=== PATIENT | male | born 1960 | race Caucasian/White ===

== ENCOUNTER 2017-12-18 05:53 | Day surgery (SDC) | payer MEDICAID, SELFPAY ==
[2017-12-18 06:11] VITALS: BP 114/77; PULSE 72; RESP 16; TEMP 36.2; O2SAT 96; BMI 34.1
[2017-12-18 06:33] VITALS: BMI 34.1
[2017-12-18 06:41] LABS: Bedside Glucose 224 mg/dL (70-110)
[2017-12-18 07:20] VITALS: BP 113/79; BP 114/77; PULSE 65; RESP 16; TEMP 36.1; O2SAT 97
--- NOTE | 2017-12-18 07:20 | PCM.HP.STD ---
Problem List (1) Encounter for screening for malignant neoplasm of colon Status: Acute History of Present Illness Date of Admission: 12/18/17 The patient is a 57 year old M who presents for screening colonoscopy. Past Medical History Allergies No Known Allergies Allergy (Verified 12/16/17 15:35) Home Medications: Ambulatory Orders Medication Instructions Recorded Tadalafil [Cialis] 10 mg PO PRN 08/29/13 Aspirin [Aspirin, Baby] 81 mg PO DAILY@0800 09/17/13 Gemfibrozil [Lopid] 600 mg PO DAILY 09/17/13 Glimepiride [Amaryl] 2 mg PO DAILY 09/17/13 Lansoprazole [Prevacid] 30 mg PO BID 09/17/13 Levothyroxine Sodium [Levoxyl] 175 mcg PO DAILY 09/17/13 Lisinopril [Zestril] 5 mg PO DAILY 09/17/13 Metformin(XR) [Glucophage Xr] 1,000 mg PO BID 09/17/13 Alogliptin Benzoate [Alogliptin] 25 mg PO DAILY 12/16/17 Smoking Status: Never smoker - *Family History Maternal History Items: No pertinent history VTE Information - Inpt Only VTE Present on Admission: No VTE Mechan Device Prophylaxis: None VTE Pharm Prophylaxis ordered?: No Reason prophylaxis not ordered:: Treatment Not Indicated Patient Problems: Active and Suspected Problems Encounter for screening for malignant neoplasm of colon (Acute) - Physical Exam Lungs: Clear to auscultation Cardiovascular: Regular rate, Regular Rhythm, No murmurs Abdomen: Bowel Sounds Present, Soft, Non Tender, Non-Distended Vital Signs Temp Pulse Resp BP Pulse Ox 97.1 F L 72 16 114/77 96 12/18/17 06:11 12/18/17 06:11 12/18/17 06:11 12/18/17 06:11 12/18/17 06:11 Oxygen Delivery Method Room Air Weight: 244 lb 14.937 oz Body Mass Index (BMI) 34.1 POC Glucose 12/18/17 06:32 POC Glucose 224 H Assessment/Plan Active and Suspected Problems Encounter for screening for malignant neoplasm of colon (Acute) Pain is to perform a colonoscopy.
--- NOTE | 2017-12-18 07:21 | PCM.OPRPT ---
Problem List (1) Encounter for screening for malignant neoplasm of colon Status: Acute Report of Operation Date of Procedure: 12/18/17 Pre-Operative Diagnosis: Z12.11 screening colonoscopy Post-Operative Diagnosis: Same Surgery/Procedure Performed:: 14375 colonoscopy Type of Anesthesia:: MAC Anesthesiologist: Adalberto León Description of Procedure: Patient was brought into the endoscopy suite placed in the left lateral decubitus position was given graded anesthesia. The scope was inserted into the rectum. It was directed through the sigmoid colon, descending colon, transverse colon, ascending colon, to the cecum without difficulty. Operative findings: 1. Cecum: Normal appearance no mass lesions normal ileocecal valve. 2. Ascending colon: Normal appearance no mass lesions. 3. Transverse colon: Normal appearance no mass lesions. 4. Descending colon: Normal appearance no mass lesions. 5. Sigmoid colon: Normal appearance no mass lesions scattered diverticuli were identified. 6. Rectum: Normal appearance no mass lesions. Retroflexion showed a few internal hemorrhoids Scope was withdrawn digital rectal exam was performed showing a smooth prostate with no nodules. Patient will need to have another colonoscopy in 10 years - Admit VTE Documentation VTE Present on Admission: No VTE Mechan Device Prophylaxis: None VTE Pharm Prophylaxis ordered?: No Reason prophylaxis not ordered:: Treatment Not Indicated
[2017-12-18 07:25] VITALS: BP 106/76; BP 114/77; PULSE 68; RESP 14; O2SAT 96
[2017-12-18 07:30] VITALS: BP 111/80; BP 114/77; PULSE 62; RESP 16; O2SAT 96
[2017-12-18 07:35] VITALS: BP 112/71; BP 114/77; PULSE 58; RESP 16; TEMP 36.4; O2SAT 96
[2017-12-18 07:47] VITALS: BP 114/77
== END 2017-12-18 07:53 | disposition home or self-care (01) ==
LOC: EN 05:54 → AC 05:56
PROVIDERS: Family Provider Family Medicine; PCP Family Medicine; Visit Provider Surgery
PROC: 0DJD8ZZ Inspection of Lower Intestinal Tract, Via Natural or Artificial Opening Endoscopic (ICD-10-PCS; CPT 45378; principal; 2017-12-18 06:55)
DX: Z12.11 Encounter for screening for malignant neoplasm of colon (principal); K64.8 Other hemorrhoids
CPT/HCPCS: 45378; 82962; J7120

== ENCOUNTER → 2017-12-19 08:01 | Outpatient (CLI) | payer MEDICAID, SELFPAY ==
--- NOTE | 2017-12-19 08:04 | CT_ITS ---
STUDY: CT RIGHT SHOULDER REASON FOR EXAM: Male, 57 years old. Chronic right shoulder pain. History of prior right rotator cuff surgery. RADIATION DOSAGE (If Supplied By Facility): CTDIvol = ( 34.24 ) mGy, DLP = ( 678.02 ) mGycm TECHNIQUE: The patient was scanned in a multi detector CT scanner. High resolution transaxial imaging was performed without the administration of intravenous contrast material. Sagittal and coronal images were reconstructed. Individualized dose optimization techniques were used for this CT. COMPARISON: Comparison is made with prior right shoulder radiograph dated October 08, 2016. FINDINGS: There is severe osteoarthritis, with severe articular joint space narrowing, osteoarthritic spurring, articular remodeling, and with articular erosions. Degenerative spur along the inferior aspect of the glenoid. Degenerative spurring along the inferior medial aspect of the humeral head. Normal coracoid process. Normal visualized lateral clavicle. There is mild osteoarthritis with articular joint space narrowing. There is a Type II morphology (curved), with a neutral orientation. Normal visualized muscles and soft tissue structures. CT/Coronals Sag Multi Obl 3-D Rec IMPRESSION: Marked degree of osteoarthritis involving the glenohumeral joint. Electronically Signed: German Gonzalez MD at 13:36 EST Tel [phone], Service support ,
--- NOTE | 2017-12-19 08:04 | CT_ITS ---
STUDY: CT RIGHT SHOULDER REASON FOR EXAM: Male, 57 years old. Chronic right shoulder pain. History of prior right rotator cuff surgery. RADIATION DOSAGE (If Supplied By Facility): CTDIvol = ( 34.24 ) mGy, DLP = ( 678.02 ) mGycm TECHNIQUE: The patient was scanned in a multi detector CT scanner. High resolution transaxial imaging was performed without the administration of intravenous contrast material. Sagittal and coronal images were reconstructed. Individualized dose optimization techniques were used for this CT. COMPARISON: Comparison is made with prior right shoulder radiograph dated October 08, 2016. FINDINGS: There is severe osteoarthritis, with severe articular joint space narrowing, osteoarthritic spurring, articular remodeling, and with articular erosions. Degenerative spur along the inferior aspect of the glenoid. Degenerative spurring along the inferior medial aspect of the humeral head. Normal coracoid process. Normal visualized lateral clavicle. There is mild osteoarthritis with articular joint space narrowing. There is a Type II morphology (curved), with a neutral orientation. Normal visualized muscles and soft tissue structures. CT/Extremity Upper without Contra IMPRESSION: Marked degree of osteoarthritis involving the glenohumeral joint. Electronically Signed: German Gonzalez MD at 13:36 EST Tel [phone], Service support ,
== END ==
PROVIDERS: Family Provider Family Medicine; PCP Family Medicine; Visit Provider Specialist
DX: M19.211 Secondary osteoarthritis, right shoulder (principal); S46.011A Strain of muscle(s) and tendon(s) of the rotator cuff of right shoulder, initial encounter; Z01.818 Encounter for other preprocedural examination
CPT/HCPCS: 73200; 76377

== ENCOUNTER → 2018-02-11 08:23 | Outpatient (CLI) | payer MEDICAID, SELFPAY ==
[2017-12-25 15:08] VITALS: BP 113/72; PULSE 78; RESP 16; TEMP 37; O2SAT 96; BMI 35.0
--- NOTE | 2017-12-25 15:11 | EKG12_ITS ---
Test Reason : Blood Pressure : / mmHG Vent. Rate : 073 BPM Atrial Rate : 073 BPM P-R Int : 182 ms QRS Dur : 092 ms QT Int : 394 ms P-R-T Axes : 011 -07 004 degrees QTc Int : 434 ms Normal sinus rhythm Normal ECG Confirmed by RAMOS KAUR, ULI ([id number]), marketing editor YVONNE COOPER ([id number]) on 12/26/2017 1:01:55 PM Referred By: Pro Bradley Confirmed By:ULI BEASLEY MD
[2017-12-25 16:20] LABS: Absolute Lymphocyte Count 2.53 X10^3/ul (0.83-4.51); Absolute Neutrophil Count 6.2 X10^3/uL (2.0-7.7); Basophil# 0.05 X10^3/uL; Basophil% 0.5 % (0-1); Eosinophil# 0.12 X10^3/uL; Eosinophils% 1.3 % (0-5); Hematocrit 43.4 % (40-54); Hemoglobin 14.8 g/dl (13.0-16.5); Lymphocyte # 2.53 X10^3/ul (4.0); Lymphocyte % 27.2 % (19-41); Mean Corp Hgb Conc 34.1 g/gl (32-36); Mean Corpuscular Hgb 29.1 pg (27.0-32.0); Mean Corpuscular Volume 85.4 fL (80-94); Mean Platelet Vol. 10.3 fl (6.2-12.0); Monocyte# 0.41 X10^3/uL; Monocyte% 4.4 % (0-10); Neutrophil # 6.17 X10^3/uL (2.7-7.7); Neutrophil % 66.4 % (47-70); Platelet Count 315 K/mm3 (150-450); RBC Distribution Width CV 13.8 % (11.6-14.6); RBC Distribution Width SD 43.1 fl (35.1-43.9); Red Blood Count 5.08 M/mm3 (4.6-6.2); White Blood Count 9.3 K/mm3 (4.4-11.0)
[2017-12-25 16:21] LABS: POSITIVE COUNT NO; POSITIVE DIFFERENTIAL NO; POSITIVE MORPHOLOGY NO
[2017-12-25 16:44] LABS: Hemoglobin A1c 9.6 % (4.2-6.3)
[2017-12-25 17:00] LABS: Anion Gap 12 (5-15); BUN 17 mg/dL (7-18); BUN/Creat Ratio 14.2 RATIO (10-20); Chloride 101 mmol/L (98-107); EST Glomerular Filtration Rate 66 mL/min (>60); Est Glom Filt Rate - Afr Amer 80 mL/min (>60); Estimated Creatinine Clearance 72.34 ml/min; Glucose 264 mg/dL (74-106); Potassium 4.3 mmol/L (3.5-5.1); Sodium Level 135 mmol/L (136-145); Thyroid Stim Hormone (TSH) 2.41 uIU/mL (0.358-3.74)
--- NOTE | 2017-12-25 22:45 | HP.PCM_ITS ---
History and Physical DATE OF SERVICE: 01/07/2018 SCHEDULED PROCEDURE: Reverse right total shoulder arthroplasty HISTORY OF PRESENT ILLNESS: This is a 57-year-old male who has been having ongoing right shoulder pain for over 20 years. Patient is right-hand dominant. Patient states the pain can reach as high as a 10 out of 10. He has difficult time with activities of daily living that include anything overhead. Patient has pain in the anterior lateral shoulder. Pain does awaken him at night. 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 He states his shoulder pain has been causing extreme difficulty with doing his job due to the pain. Patient has limited motion when compared to his other side. He does have previous history of arthroscopy and open surgery on the right shoulder. Patient has tried previous corticosteroid injections with his primary care physician as well as [id number] medications with no significant relief in symptoms. Patient has medical history pertinent for hypertension and type 2 diabetes mellitus. We are obtaining surgical clearance from his primary care physician Dr. Linn. After failing conservative measures and discussing all treatment options with Dr. Bradley, the patient would like to proceed with a reverse right total shoulder arthroplasty. REVIEW OF SYSTEMS: ROS: Const: Denies anorexia, anxiety, change in appetite, fever and weight change, hard of hearing, and vision problems. CV: Denies chest pain, heart murmur, irregular heartbeat and peripheral vascular disease. Resp: Denies asthma, cough, pneumonia, sleep apnea, shortness of breath, tuberculosis and wheezing. GI: Denies constipation, diarrhea, heartburn, nausea, bloody stools and vomiting , and difficulty swallowing. : . (F Genital Sx) Denies incontinence. Musculo: Denies leg swelling, trouble walking and weakness and limp. Skin: Denies Raynaud's, history of shingles and tattoo. Neuro: Denies ambulatory dysfunction, dizziness, numbness/tingling and tremor. Psych: Denies anxiety, depression, insomnia, mental illness and stress. Gilberto/Lymph: Denies anemia, bleeding/bruising tendency and past transfusion. Reviewed, no changes. PAST MEDICAL HISTORY: Advance Care Plan: No Advance Directives Effective Date: 11/22/2017 PMH: Medical Problems: High Blood Pressure, Hypercholesterolemia, Over Active Thyroid`, Diabetes Accidents: None Surgical Hx: Arthroscopy - RT shoulder, LT knee RT THR - (2010) JINNY Anesthesia Complications: None Assistive Devices: Glasses Reviewed, no changes. 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 Personal Habits: Smoking: Patient has never smoked.Cigarette Use: Never.Alcohol : Currently consumes alcohol - 1-2x/week.Drug Use: Denies Use.Enjoy Exercising: Never Exercises. Reviewed, no changes. VITALS: Ht: 69.5 Wt: 250lb Wt k.400 BMI: 36.4 BP: 110/80 Pulse: 78 Resp: 16 T: 97.4 T: 36.3C ALLERGIES: No Known Drug Allergy MEDICATIONS: Ultram 50 mg 1-2 by mouth q6 hour as needed pain, Lisinopril 2.5 mg 1po qday, Metformin HCL 1000 mg 1po qday, Levothyroxine Sodium 75 mcg 1po qday, Lansoprazole 15 mg take 2 capsules every day, Glimepiride 2 mg Take 1 tablet by mouth daily, Gemfibrozil 600 mg take 1 tablet by mouth twice daily, Atorvastatin Calcium 10 mg Take 1 tablet by mouth daily, Alogliptin Benzoate 25 mg Take 1 tablet by mouth daily PRE-OP EXAM: General appearance:NORMAL Other: Eyes: Conjunctivae and lids: NORMAL Pupils: ERR Ears, Nose, Mouth, and Throat: NORMAL Other: Inspection of lips, teeth and gums: NORMAL Other: Neck: Examination of neck: no masses noted. Respiratory: Assessment of respiratory effort: NORMAL Other: Ausculation of lungs: clear to ausculation no wheeses, ronchi or rales. Cardiovascular: Ausculation of heart: regular rate and rhythem, no mummurs, gallops or rubs. Exam of carotid arteries: NORMAL Other: Gastrointestinal: Exam of abdomen: soft, nontender, nondistended bowel sounds present. Lymphatic: Palpation of nodes in neck: NORMAL Other: Palpation of nodes in Axillae: NORMAL Other: Neurological: see below Psychiatric: Orientation to time, place and person: NORMAL Other: Mood and affect: NORMAL Other: PHYSICAL EXAMINATION: Right shoulder examination reveals previous incisions well-healed without any ear edema. Patient has scapular dyskinesia and compensation upon range of motion. There is crepitus appreciated on range of motion. Internal rotation is to beltline, forward elevation to 70?, external rotation approximately 20?. Patient has significant weakness with supraspinatus strength on the right. Sensations intact light touch, neurovascularly intact. IMAGING STUDIES: 1. X-rays were obtained at [facility] [place] on November 22, 2017 of the right shoulder reveals severe rotator cuff arthropathy with osteophyte formation, subchondral sclerosis, subchondral cyst and complete loss of glenohumeral joint space with elevation of the humeral head. IMPRESSION: 1. Right shoulder severe osteoarthritis with rotator cuff arthropathy 2. Hypertension 3. Type 2 diabetes mellitus 4. Hypercholesterolemia 5. Hyperthyroidism PLAN: Dr. Bradley did discuss and review with the patient all treatment options including surgical versus nonsurgical. Patient wishes to proceed with above- stated procedure. Potential risks, benefits, and complications of this procedure were discussed in detail including but not limited to , infection , nerve and blood vessel damage, persistent pain, numbness, tingling, paresthesias, blood clot, pulmonary embolism, and requirement for further surgery. The patient expressed full understanding has no further questions for the doctor. Patient does agree to proceed with the above-stated procedure and has signed the surgery consent form. Patient will undergo preoperative lab work and EKG. We are obtaining surgical clearance from patient's primary care physician. ___ I have re-examined the patient. There are no clinical changes since date of exam. ___ See progress notes for changes. ___ Dictated on admission Date: Time: Signature:
== END ==
PROVIDERS: Family Provider Family Medicine; PCP Family Medicine; Visit Provider Specialist
DX: M19.011 Primary osteoarthritis, right shoulder (principal); I10 Essential (primary) hypertension; E11.9 Type 2 diabetes mellitus without complications; E78.00 Pure hypercholesterolemia, unspecified; E05.90 Thyrotoxicosis, unspecified without thyrotoxic crisis or storm
CPT/HCPCS: 36415; 80048; 83036; 84443; 85025; 87081; 93005

== ENCOUNTER 2018-03-04 05:34 | Inpatient (IN) | payer MEDICAID, SELFPAY ==
[2018-02-20 08:10] VITALS: BP 126/75; PULSE 67; RESP 17; TEMP 36.4; O2SAT 97; BMI 35.5
[2018-02-20 09:16] LABS: Anion Gap 7 (5-15); BUN 15 mg/dL (7-18); BUN/Creat Ratio 14.3 RATIO (10-20); Calcium,Total 8.7 mg/dL (8.5-10.1); Chloride 106 mmol/L (98-107); Creatinine, Serum 1.05 mg/dL (0.70-1.30); EST Glomerular Filtration Rate 77 mL/min (>60); Est Glom Filt Rate - Afr Amer 94 mL/min (>60); Estimated Creatinine Clearance 80.15 ml/min; Glucose 165 mg/dL (74-106); Potassium 4.4 mmol/L (3.5-5.1); Sodium Level 136 mmol/L (136-145)
--- NOTE | 2018-02-20 15:40 | PCM.HP.BLA ---
History and Physical History and Physical Patient Name: Daryn Arthur: 1960 From: ANGEL CARVER PA-C DATE OF SURGERY: 03/04/2018 SCHEDULED PROCEDURE: HISTORY OF PRESENT ILLNESS: This is a 57-year-old male who is been having ongoing right shoulder pain for over 20 years. Patient was previously scheduled to undergo a right reverse total shoulder arthroplasty but was canceled due to A1c at 9.6. Patient followed up with his primary care physician medications were adjusted and patient's recent A1c is at area patient is currently right-hand dominant. Patient has increased pain with activities of daily living that includes anything overhead. Pain is primarily of the anterior and lateral aspect of the right shoulder. Pain does awaken him at night. 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 Patient is having a difficult time with his job secondary to the pain. He has limited range of motion compared to his other side. Patient has had a previous history of arthroscopy and open surgery on the right shoulder. He has also tried previous corticosteroid injections with his primary care physician as well as [id number] medications with no significant relief in symptoms. Patient does have medical history pertinent for hypertension as well as type 2 diabetes mellitus. We have received surgical clearance from his primary care physician. After failing conservative measures and discussing all treatment options after Mirna, the patient would like to proceed with a reverse right total shoulder arthroplasty. REVIEW OF SYSTEMS: ROS: Const: Denies anorexia, anxiety, change in appetite, fever and weight change,hard of hearing, and vision problems. CV: Denies chest pain, heart murmur, irregular heartbeat and peripheral vascular disease. Resp: Denies asthma, cough, pneumonia, sleep apnea, shortness of breath, tuberculosis and wheezing. GI: Denies constipation, diarrhea, heartburn, nausea, bloody stools and vomiting, and difficulty swallowing. : . (F Genital Sx) Denies incontinence. Musculo: Denies leg swelling, trouble walking and weakness and limp. Skin: Denies Raynaud's, history of shingles and tattoo. Neuro: Denies ambulatory dysfunction, dizziness, numbness/tingling and tremor. Psych: Denies anxiety, depression, insomnia, mental illness and stress. Gilberto/Lymph: Denies anemia, bleeding/bruising tendency and past transfusion. Reviewed, no changes. PAST MEDICAL HISTORY: Advance Care Plan: No Advance Directives Effective Date: 11/22/2017 PMH: Medical Problems: High Blood Pressure, Hypercholesterolemia, Over Active Thyroid`, Diabetes Accidents: Fracture - BAHMAN ELBOW A CHILD Surgical Hx: Arthroscopy - RT shoulder, LT knee RT THR - (2010) JINNY Anesthesia Complications: None Assistive Devices: Glasses Reviewed and updated. 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 Personal Habits: Smoking: Patient has never smoked.Cigarette Use: Never.Alcohol: Currently consumes alcohol - 1-2x/week.Drug Use: Denies Use.Enjoy Exercising: Never Exercises. Reviewed, no changes. VITALS: Ht: 69.5 Wt: 246lb Wt k.586 BMI: 35.8 BP: 112/78 Pulse: 64 Resp: 16 T: 96.3 T: 35.7C ALLERGIES: No Known Drug Allergy MEDICATIONS: Metformin HCL 500 mg 1 tab PO bid, Levothyroxine Sodium 75 mcg 1po qday, Lansoprazole 15 mg 1 cap PO bid, Glimepiride 2 mg Take 1 tablet by mouth daily, Gemfibrozil 600 mg take 1 tablet by mouth twice daily, Alogliptin Benzoate 25 mg Take 1 tablet by mouth daily, Testosterone Cypionate 200 mg/ml Inject 1ml intramuscularly every 3 weeks. PRE-OP EXAM: General appearance:NORMAL Other: Eyes: Conjunctivae and lids: NORMAL Pupils: ERR Ears, Nose, Mouth, and Throat: NORMAL Other: Inspection of lips, teeth and gums: NORMAL Other: Neck: Examination of neck: no masses noted. Respiratory: Assessment of respiratory effort: NORMAL Other: Auscultation of lungs: clear to auscultation no wheezes, rhonchi or rales. Cardiovascular: Auscultation of heart: regular rate and rhythm, no murmurs, gallops or rubs. Exam of carotid arteries: NORMAL Other: Gastrointestinal: Exam of abdomen: soft, nontender, nondistended bowel sounds present. PHYSICAL EXAMINATION: Right shoulder reveals previous incisions are well-healed without any erythema or signs of infection. Patient does have scapular dyskinesia and compensation upon range of motion. Crepitus is appreciated on range of motion. Internal rotation is to beltline, forward elevation to 70?, external rotation approximately 20?. Patient with significant weakness with the supraspinatus on the right. Sensations intact light touch, neurovascularly intact. IMAGING STUDIES: 1. X-rays were obtained at [facility] [place] on November 22, 2017 of the right shoulder which reveals severe rotator cuff arthropathy with osteophyte formation, subchondral sclerosis, subchondral cyst formation, and complete loss of glenohumeral joint space with elevation of the humeral head. IMPRESSION: 1. Severe right shoulder osteoarthritis with rotator cuff arthropathy 2. Hypertension 3. Type 2 diabetes mellitus: Current A1c 7.7 4. Hypercholesterolemia 5. Hyper thyroidism PLAN: Dr. Bradley did discuss and review with the patient all treatment options including surgical versus nonsurgical. Patient wishes to proceed with above-stated procedure. Potential risks, benefits, and complications of this procedure were discussed in detail including but not limited to , infection, nerve and blood vessel damage, persistent pain, numbness, tingling, paresthesias, blood clot, pulmonary embolism, and requirement for further surgery. The patient expressed full understanding has no further questions for the doctor. Patient does agree to proceed with the above-stated procedure and has signed the surgery consent form. ___ I have re-examined the patient. There are no clinical changes since date of exam. ___ See progress notes for changes. ___ Dictated on admission Date: Time: Signature:
--- NOTE | 2018-02-20 15:47 | HP.PCM_ITS ---
History and Physical History and Physical Patient Name: Daryn Arthur: 1960 From: ANGEL CARVER PA-C DATE OF SURGERY: 03/04/2018 SCHEDULED PROCEDURE: HISTORY OF PRESENT ILLNESS: This is a 57-year-old male who is been having ongoing right shoulder pain for over 20 years. Patient was previously scheduled to undergo a right reverse total shoulder arthroplasty but was canceled due to A1c at 9.6. Patient followed up with his primary care physician medications were adjusted and patient's recent A1c is at area patient is currently right-hand dominant. Patient has increased pain with activities of daily living that includes anything overhead. Pain is primarily of the anterior and lateral aspect of the right shoulder. Pain does awaken him at night. 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 Patient is having a difficult time with his job secondary to the pain. He has limited range of motion compared to his other side. Patient has had a previous history of arthroscopy and open surgery on the right shoulder. He has also tried previous corticosteroid injections with his primary care physician as well as [id number] medications with no significant relief in symptoms. Patient does have medical history pertinent for hypertension as well as type 2 diabetes mellitus. We have received surgical clearance from his primary care physician. After failing conservative measures and discussing all treatment options after Miran , the patient would like to proceed with a reverse right total shoulder arthroplasty. REVIEW OF SYSTEMS: ROS: Const: Denies anorexia, anxiety, change in appetite, fever and weight change, hard of hearing, and vision problems. CV: Denies chest pain, heart murmur, irregular heartbeat and peripheral vascular disease. Resp: Denies asthma, cough, pneumonia, sleep apnea, shortness of breath, tuberculosis and wheezing. GI: Denies constipation, diarrhea, heartburn, nausea, bloody stools and vomiting , and difficulty swallowing. : . (F Genital Sx) Denies incontinence. Musculo: Denies leg swelling, trouble walking and weakness and limp. Skin: Denies Raynaud's, history of shingles and tattoo. Neuro: Denies ambulatory dysfunction, dizziness, numbness/tingling and tremor. Psych: Denies anxiety, depression, insomnia, mental illness and stress. Gilberto/Lymph: Denies anemia, bleeding/bruising tendency and past transfusion. Reviewed, no changes. PAST MEDICAL HISTORY: Advance Care Plan: No Advance Directives Effective Date: 11/22/2017 PMH: Medical Problems: High Blood Pressure, Hypercholesterolemia, Over Active Thyroid`, Diabetes Accidents: Fracture - BAHMAN ELBOW A CHILD Surgical Hx: Arthroscopy - RT shoulder, LT knee RT THR - (2010) JINNY Anesthesia Complications: None Assistive Devices: Glasses Reviewed and updated. 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 Personal Habits: Smoking: Patient has never smoked.Cigarette Use: Never.Alcohol : Currently consumes alcohol - 1-2x/week.Drug Use: Denies Use.Enjoy Exercising: Never Exercises. Reviewed, no changes. VITALS: Ht: 69.5 Wt: 246lb Wt k.586 BMI: 35.8 BP: 112/78 Pulse: 64 Resp: 16 T: 96.3 T: 35.7C ALLERGIES: No Known Drug Allergy MEDICATIONS: Metformin HCL 500 mg 1 tab PO bid, Levothyroxine Sodium 75 mcg 1po qday, Lansoprazole 15 mg 1 cap PO bid, Glimepiride 2 mg Take 1 tablet by mouth daily, Gemfibrozil 600 mg take 1 tablet by mouth twice daily, Alogliptin Benzoate 25 mg Take 1 tablet by mouth daily, Testosterone Cypionate 200 mg/ml Inject 1ml intramuscularly every 3 weeks. PRE-OP EXAM: General appearance:NORMAL Other: Eyes: Conjunctivae and lids: NORMAL Pupils: ERR Ears, Nose, Mouth, and Throat: NORMAL Other: Inspection of lips, teeth and gums: NORMAL Other: Neck: Examination of neck: no masses noted. Respiratory: Assessment of respiratory effort: NORMAL Other: Auscultation of lungs: clear to auscultation no wheezes, rhonchi or rales. Cardiovascular: Auscultation of heart: regular rate and rhythm, no murmurs, gallops or rubs. Exam of carotid arteries: NORMAL Other: Gastrointestinal: Exam of abdomen: soft, nontender, nondistended bowel sounds present. PHYSICAL EXAMINATION: Right shoulder reveals previous incisions are well-healed without any erythema or signs of infection. Patient does have scapular dyskinesia and compensation upon range of motion. Crepitus is appreciated on range of motion. Internal rotation is to beltline, forward elevation to 70?, external rotation approximately 20?. Patient with significant weakness with the supraspinatus on the right. Sensations intact light touch, neurovascularly intact. IMAGING STUDIES: 1. X-rays were obtained at [facility] on November 22, 2017 of the right shoulder which reveals severe rotator cuff arthropathy with osteophyte formation, subchondral sclerosis, subchondral cyst formation, and complete loss of glenohumeral joint space with elevation of the humeral head. IMPRESSION: 1. Severe right shoulder osteoarthritis with rotator cuff arthropathy 2. Hypertension 3. Type 2 diabetes mellitus: Current A1c 7.7 4. Hypercholesterolemia 5. Hyper thyroidism PLAN: Dr. Bradley did discuss and review with the patient all treatment options including surgical versus nonsurgical. Patient wishes to proceed with above- stated procedure. Potential risks, benefits, and complications of this procedure were discussed in detail including but not limited to , infection , nerve and blood vessel damage, persistent pain, numbness, tingling, paresthesias, blood clot, pulmonary embolism, and requirement for further surgery. The patient expressed full understanding has no further questions for the doctor. Patient does agree to proceed with the above-stated procedure and has signed the surgery consent form. ___ I have re-examined the patient. There are no clinical changes since date of exam. ___ See progress notes for changes. ___ Dictated on admission Date: Time: Signature:
[2018-03-04] VITALS (14 sets, daily range): BP systolic 100–128; BP diastolic 59–78; PULSE 49–64; RESP 16–18; TEMP 36.4–36.7; O2SAT 91–99; BMI 34.5
[2018-03-04] MEDS: Celecoxib 200 MG Capsule 400 MG PO (06:26)
[2018-03-04] MEDS: oxyCODONE HCl Cr 10 MG Tablet PO (06:27)
[2018-03-04 06:40] LABS: Bedside Glucose 207 mg/dL (70-110)
[2018-03-04] MEDS: CEFAZOLIN IV (07:40)
--- NOTE | 2018-03-04 07:49 | OP.PCM_ITS ---
Report of Operation Date of Procedure: 03/04/18 Pre-Operative Diagnosis: Right shoulder cuff tear arthropathy Post-Operative Diagnosis: Right shoulder cuff tear arthropathy Surgery/Procedure Performed:: Right reverse total shoulder replacement Description of Surgical Findings:: stAble shoulder technical information specialist: Dusty Weiner Type of Anesthesia:: General Anesthesiologist: Aryan Pulido Special Medications: bony Cuts Specimen's removed: 2 g Ancef, 1 g TXA at incision, 1 g TXA closure, 10 mg Decadron, joint cocktail (5 mg Duramorph, 30 mL of 0.5% Ropivicaine, 1000 units of epinephrine, 30 mg of Toradol), 1 g vancomycin throughout case Estimated Blood Loss (mL): 100 Fluids Replaced: 1000 ml Description of Procedure: Components used 1. Equinox glenoid baseplate from Bangee for reverse TSA 2. Equinox 42 mm +4 mm mm Glenosphere 3. Equinox 42 mm, 0mm humeral liner 4. Equinox reverse TSA humeral adapter tray 0mm 5. Equinox preserve humeral stem primary press-fit 12mm size Brief history/Operative indications: 57 yo m with history of r shoulder pain and cuff tear arthropathy. Patient failed conservative measures as mentioned in the H&P. After discussion of risk and benefits of reverse total shoulder replacement including but not limited to blood loss, DVTs, PEs, nerve vessel damage, infection, general risk of anesthesia including loss of life, instability and stiffness patient demonstrating understanding wish to proceed was able to sign informed consent. Medical clearance was obtained. Procedure: On the date of the procedure, patient's r upper extremity was marked in the preoperative area. Patient was taken back to the operating room where they were placed on the table in the supine position. Anesthesia assumed control of the C-spine and airway, then administered anesthetic. All bony prominences were identified well-padded, the head was secured and the patient was placed in the beachchair position at about 35? inclination. Anesthesia remained in control of the C-spine airway throughout the remainder of the procedure. Patient was then appropriately fastened to the table and the r upper extremity was prepped in a sterile fashion. The surgeons then scrubbed. Upon reentering the room, the r upper extremity was draped in a sterile fashion and the incision was marked out. Timeout was called, everyone agreed upon the side, the site, the procedure to be performed, patient identity and antibiotics given. Incision was taken down through skin and subcutaneous tissue, fat down to fascia. The stripe of the deltopectoral interval and cephalic vein were identified and blunt dissection was used to retract the deltoid. The cephalic vein was retracted laterally. Clavipectoral fascia was then incised and a cobra retractor was placed in the wound. The proximal one third of the pectoralis major insertion was released. Pectoralis tendon insertion was used to tenodesed the biceps tendon which was identified in the bicipital groove. Tenodesis was done with #1 Vicryl. Proximally we followed the biceps tendon after transecting it into the rotator interval. The rotator interval was split and the arm was externally rotated. The split was 1 cm medial to the bicipital groove. Subscapularis tendon was released. We released down the anterior portion of the humeral head and a hair elevator was used to release the inferior portion of the humeral head. The arm was externally rotated and the shoulder was dislocated. The Bangee humeral head cutting guide was used to make humeral cut. This was done at 20? retroversion. Once his humeral head cut was made humerus was retracted out of the way and the glenoid was exposed. After exposing the glenoid, the labrum and the remaining proximal biceps were debrided. At this time we are able to view the entire outer edge of the glenoid. A central pin was placed we sequentially reamed over this central pin to 42mm. Once this was completed the central pedicle was drilled. The glenoid baseplate was impacted into place. Wound was closely irrigated out with normal saline we then drilled sequentially for 4 screws. Screws were placed superiorly and inferiorly and tightened down the screws. Then anteriorly and posteriorly. Once the screws were appropriately tightened into place the glenoid baseplate was compressed against the exposed subchondral bone. Locking caps were placed and a 42, 4mm glenosphere was impacted into place engaging the Bhardwaj taper. The central screw was then tightened into place. Attention was then turned towards the humerus. The humerus was again externally rotated exposing the proximal portion of the humerus. We then broached to a 12mm stem. We trialed the 0mm liner, with the 0mm humeral baseplate. We obtained an adequate reduction at this time with a nice stable shoulder. Good internal rotation to the gluteus, forward elevation to 140?, external rotation to 20?. Final components were then assembled on the back table, trials were removed and the wound was copiously irrigated with normal saline after dislocating the shoulder. Once the final components were assembled they were impacted into place. Shoulder was then reduced and found to be stable with good range of motion. Subscapularis tendon could not be repaired. Wound was then copiously irrigated out with 1 L of normal saline lavage. The deltopectoral fascia was then closed using #1 Vicryl skin was closed using 2-0 Vicryl interrupted sutures and final skin closure was done with 3-0 Monocryl. Steri-Strips are placed for final skin closure. Sterile dressing was placed patient was then placed in a sling and awakened by anesthesia. Patient was then transferred to the PACU for recovery. Postoperative plan: Patient will be admitted to the hospital overnight. They will get physical therapy starting in 2 weeks with normal postoperative regimen. Patient will be placed on 325 mg aspirin daily for DVT prophylaxis. The first postoperative appointment will be in 2 weeks for wound check and initiation of phase 1 physical therapy. During the course of the procedure the physician server service assistant played a vital role. His intimate knowledge of my steps in the procedure aided in safe and expedient completion of the procedure. The PA played a vital rolls in positioning particularly in obtaining the appropriate beach chair position and securing the patient's body and head to the table. The PA was also vital in the retraction of soft tissues during the exposure and especially the glenoid work as this is a vital part of the procedure to prevent neurovascular damage. the PA was also vital and protecting soft tissues during times of bony cuts and reaming. He also played a vital role in closure with my direct supervision. The PA was also important during reduction and dislocation of the joint and trials intraoperatively. Grafts/Implants Used: [employer] Equinox - Complications None - Admit VTE Documentation VTE Present on Admission: No VTE Mechan Device Prophylaxis: SCD's, Thigh High LOVE Hose VTE Pharm Prophylaxis ordered?: Yes
--- NOTE | 2018-03-04 10:22 | RAD_ITS ---
STUDY: X-RAY - RIGHT SHOULDER REASON FOR EXAM: Male, 57 years old. Total shoulder replacement. TECHNIQUE: Single frontal view(s) of the shoulder. COMPARISON: Comparison is made with prior study dated October 08, 2016. FINDINGS: The patient is status post reverse shoulder replacement. There is good alignment. Normal acromioclavicular joint. Normal acromion. Normal humeral head and visualized proximal humerus. Postoperative soft tissue changes. Atelectasis at the right lung base. RAD/Shoulder One View IMPRESSION: Status post right reverse shoulder replacement. There is good alignment. Postoperative soft tissue changes. Electronically Signed: German Gonzalez MD at 12:57 EDT Tel [phone], Service support ,
[2018-03-04 11:16] LABS: Bedside Glucose 237 mg/dL (70-110)
[2018-03-04 12:16] LABS: Bedside Glucose 214 mg/dL (70-110)
[2018-03-04] MEDS: Pantoprazole Sodium 40 MG Tablet PO ×2 (15:52→21:58)
[2018-03-04] MEDS: Famotidine 20 MG Tablet PO (15:52)
[2018-03-04] MEDS: Levothyroxine 175 MCG Tablet PO (15:52)
[2018-03-04] MEDS: metFORMIN HCl 1,000 MG Tablet 1000 MG PO (15:52)
[2018-03-04] MEDS: Gemfibrozil 600 MG Tablet PO (15:52)
[2018-03-04] MEDS: Acetaminophen 500 MG Tablet 1000 MG PO ×2 (15:53→21:58)
[2018-03-04] MEDS: Aspirin 325 MG Tablet PO (15:53)
[2018-03-04] MEDS: Lactated Ringers 1,000 ML 125 ML IV (15:55)
[2018-03-04] MEDS: Cefazolin 1 GM/50 ML BAG IV (15:55)
[2018-03-04] MEDS: Glucerna Shake 120 ML LIQUID PO ×2 (15:56→21:58)
[2018-03-04 16:06] LABS: Bedside Glucose 142 mg/dL (70-110)
[2018-03-04 22:16] LABS: Bedside Glucose 248 mg/dL (70-110)
[2018-03-05] MEDS: Cefazolin 1 GM/50 ML BAG IV (00:01)
[2018-03-05] MEDS: oxyCODONE 5 MG Tablet PO ×3 (00:01→11:16)
[2018-03-05 02:45] VITALS: BP 110/64; PULSE 70; RESP 18; TEMP 37; O2SAT 92
[2018-03-05] MEDS: Morphine 4 MG/ML Syringe IV (03:09)
[2018-03-05] MEDS: Levothyroxine 175 MCG Tablet PO (05:57)
[2018-03-05] MEDS: Acetaminophen 500 MG Tablet 1000 MG PO ×2 (05:57→14:18)
[2018-03-05 07:01] LABS: Bedside Glucose 238 mg/dL (70-110)
--- NOTE | 2018-03-05 07:02 | PCM.PN.ORT ---
Subjective: The patient was sitting in bed upon examination. Patient denies any chest pain, shortness of breath, dizziness, lightheadedness, nausea or vomiting, or calf pain. Patient reports having a very difficult night with regards to pain. Patient states he woke up due to sudden movement of right shoulder which caused increased pain. Patient states the oxycodone is not controlling his pain at this time. No adverse overnight events. Patient does wish to try to go home today this afternoon if the additional pain medications are effective. Objective: Dressing is C/D/I Ultra-sling fitting appropriately Sensation intact to axillary, radial, median, and ulnar distribution Motor intact to AIN, PIN, and ulnar nerve - Physical Exam General: Alert, Oriented x3, Cooperative, No apparent distress Vital Signs Temp Pulse Resp BP Pulse Ox 98.6 F 70 18 110/64 92 03/05/18 02:45 03/05/18 02:45 03/05/18 02:45 03/05/18 02:45 03/05/18 02:45 Oxygen Flow Rate (L/min) 2 Oxygen Delivery Method Room Air Weight: 112.3 kg Body Mass Index (BMI) 34.5 Finger Stick Blood Glucose 237 Intake and Output for Last 24 Hours 03/03/18 03/04/18 03/05/18 23:59 23:59 23:59 Intake Total 2161 / 2161 2788 / 2788 Balance 2161 / 2161 2788 / 2788 POC Glucose 03/05/18 03/04/18 03/04/18 06:41 22:05 15:46 POC Glucose 238 H 248 H 142 H 03/04/18 03/04/18 12:10 11:13 POC Glucose 214 H 237 H Medical Necessity - Tobacco Use Smoking Status: Never smoker Assessment/Plan 1. S/P right reverse total shoulder arthroplasty POD #1 2. Continue Pain Medications: Tylenol and OxyIR. MS Contin 15 mg twice daily will be added for the next 3 days. 3. DVT Prophylaxis: Aspirin 325 mg daily 4. Physical therapy: Patient is to come out to work on elbow range of motion 3-4 times daily as well as hand/wrist range of motion. Patient will begin outpatient physical therapy 2 weeks postoperatively. 5. Encouraged Incentive Spirometry 6. Disposition: Plan will be for possible discharge home this afternoon if pain is controlled on medications. Patient will have prescriptions E scribed to [facility]. Patient will follow-up per postop instructions.
--- NOTE | 2018-03-05 07:05 | PN.ORTHO_ITS ---
Subjective: The patient was sitting in bed upon examination. Patient denies any chest pain , shortness of breath, dizziness, lightheadedness, nausea or vomiting, or calf pain. Patient reports having a very difficult night with regards to pain. Patient states he woke up due to sudden movement of right shoulder which caused increased pain. Patient states the oxycodone is not controlling his pain at this time. No adverse overnight events. Patient does wish to try to go home today this afternoon if the additional pain medications are effective. Objective: Dressing is C/D/I Ultra-sling fitting appropriately Sensation intact to axillary, radial, median, and ulnar distribution Motor intact to AIN, PIN, and ulnar nerve - Physical Exam General: Alert, Oriented x3, Cooperative, No apparent distress Vital Signs Temp Pulse Resp BP Pulse Ox 98.6 F 70 18 110/64 92 03/05/18 02:45 03/05/18 02:45 03/05/18 02:45 03/05/18 02:45 03/05/18 02:45 Oxygen Flow Rate (L/min) 2 Oxygen Delivery Method Room Air Weight: 112.3 kg Body Mass Index (BMI) 34.5 Finger Stick Blood Glucose 237 Intake and Output for Last 24 Hours 03/03/18 03/04/18 03/05/18 23:59 23:59 23:59 Intake Total 2161 / 2161 2788 / 2788 Balance 2161 / 2161 2788 / 2788 POC Glucose 03/05/18 03/04/18 03/04/18 06:41 22:05 15:46 POC Glucose 238 H 248 H 142 H 03/04/18 03/04/18 12:10 11:13 POC Glucose 214 H 237 H Medical Necessity - Tobacco Use Smoking Status: Never smoker Assessment/Plan 1. S/P right reverse total shoulder arthroplasty POD #1 2. Continue Pain Medications: Tylenol and OxyIR. MS Contin 15 mg twice daily will be added for the next 3 days. 3. DVT Prophylaxis: Aspirin 325 mg daily 4. Physical therapy: Patient is to come out to work on elbow range of motion 3- 4 times daily as well as hand/wrist range of motion. Patient will begin outpatient physical therapy 2 weeks postoperatively. 5. Encouraged Incentive Spirometry 6. Disposition: Plan will be for possible discharge home this afternoon if pain is controlled on medications. Patient will have prescriptions E scribed to [facility]. Patient will follow-up per postop instructions.
--- NOTE | 2018-03-05 07:12 | DCINST_ITS ---
Discharge Diet: 1800 Calorie Control Diet Discharge Activity: May Not Drive May shower in (days): 1 - Turned dressing away from water Ice area for (Minutes): 20 - Ice area for 20 minutes each hour while awake Weight Bearing Status: No weight bearing - Right upper extremity Keep extremity elevated above heart level: Operative Extremity Call your doctor if your incision/area has: Continuous Slow Oozing, Sudden Increased Bleeding, Increased Pain/ Swelling, Increased Redness, Foul Smelling Discharge Call your doctor if you observe: Fever of 101 or Higher, Coldness, Increased Pain, Numbness or Tingling, Change in Color Remove Dressing in (days):: 4 - Okay to remove on March 09, 2018 Additional Instructions: Patient will follow-up per postop instructions [facility] Do not take baby aspirin while taking full dose aspirin Continue with UltraSling at all times. It is okay to come out to work on elbow , wrist, hand range of motion 3-4 times daily. Allergies/Adverse Reactions: Allergies No Known Allergies Allergy (Verified 02/20/18 08:04) Medications to take at Discharge Gemfibrozil [Lopid] 600 mg PO DAILY 09/17/13 Glimepiride [Amaryl] 2 mg PO DAILY 09/17/13 Lansoprazole [Prevacid] 30 mg PO BID 09/17/13 Levothyroxine Sodium [Levoxyl] 175 mcg PO DAILY 09/17/13 Metformin(XR) [Glucophage Xr] 1,000 mg PO BID 09/17/13 Alogliptin Benzoate [Alogliptin] 25 mg PO DAILY 12/16/17 Acetaminophen [Tylenol] 1,000 mg PO Q8 #90 tab 03/05/18 Aspirin 325 mg PO DAILY@0800 #14 tab 03/05/18 Oxycodone [Oxyir] 5 - 10 mg PO Q4H PRN PRN 5 Days #60 tablet 03/05/18 Senna/Docusate Sodium [Senokot-S] 2 tab PO BID PRN PRN #20 tab 03/05/18 morphine SR tablet [Ms Contin] 15 mg PO BID 3 Days #6 tablet 03/05/18 The following prescriptions were given: Oxycodone [Oxyir] 5 - 10 mg PO Q4H PRN PRN 5 Days #60 tablet PRN Reason: Pain Acetaminophen [Tylenol] 1,000 mg PO Q8 #90 tab Aspirin 325 mg PO DAILY@0800 #14 tab Senna/Docusate Sodium [Senokot-S] 2 tab PO BID PRN PRN #20 tab PRN Reason: Constipation morphine SR tablet [Ms Contin] 15 mg PO BID 3 Days #6 tablet Primary Care Physician: Esau Linn MD [Primary Care Provider] - Please Follow Up With: Dusty Weiner PA-C When: 03/19/18 @ 8:15 am Please Follow Up With: [facility] Physical therapy When: Will call for appointment to begin after first post-op visit
[2018-03-05] MEDS: Pantoprazole Sodium 40 MG Tablet PO (07:27)
[2018-03-05] MEDS: metFORMIN HCl 1,000 MG Tablet 1000 MG PO (07:27)
[2018-03-05] MEDS: Famotidine 20 MG Tablet PO (07:28)
[2018-03-05] MEDS: Aspirin 325 MG Tablet PO (07:28)
[2018-03-05] MEDS: Glimepiride 2 MG Tablet PO (07:28)
[2018-03-05] MEDS: Gemfibrozil 600 MG Tablet PO (07:28)
[2018-03-05] MEDS: Glucerna Shake 120 ML LIQUID PO (07:34)
[2018-03-05] MEDS: LINAGLIPTIN 5 MG TABLET PO (07:35)
[2018-03-05 07:36] VITALS: O2SAT 96
[2018-03-05 07:38] VITALS: BP 122/70; PULSE 59; RESP 16; TEMP 37.1; O2SAT 93
[2018-03-05] MEDS: morphine SR 15 MG Tablet PO (08:11)
--- NOTE | 2018-03-05 10:02 | CASEMGMT ---
RANDA PARMAR Face to Face with patient for initial transition planning/care coordination assessment. RN AGATA introduced self and role at [facility]. Patient lying in bed, alert and oriented. Patient willing to participate in assessment and is able to answer all questions appropriately. Care providers, pharmacy, and demographics verified. Patient lives with son in a house with first floor setup. Patient states son can provide transportation. Patient states he has a cane but does not use it and denies need for additional DME at this time. Patient wishes to discharge home, denies need for home health at this time. Patient states he has no further needs or concerns at this time. CM to follow for discharge planning needs that may arise. Disposition Plan: Patient to discharge home with family support and follow-up plans in place.
[2018-03-05 11:10] VITALS: BP 133/80; PULSE 51; RESP 16; TEMP 36.7; O2SAT 100
[2018-03-05 11:15] LABS: Bedside Glucose 175 mg/dL (70-110)
[2018-03-05 14:22] VITALS: TEMP 37.1
== END 2018-03-05 15:41 | disposition home or self-care (01) | DRG 491 ==
PROVIDERS: Anesthesiology; Admitting Provider Specialist; Family Provider Family Medicine; PCP Family Medicine; Visit Provider Specialist
PROC: 0RRJ00Z Replacement of Right Shoulder Joint with Reverse Ball and Socket Synthetic Substitute, Open Approach (ICD-10-PCS; CPT 23472; principal; 2018-03-04 07:10)
DX: M12.811 Other specific arthropathies, not elsewhere classified, right shoulder (principal); M75.101 Unspecified rotator cuff tear or rupture of right shoulder, not specified as traumatic; I10 Essential (primary) hypertension; E11.9 Type 2 diabetes mellitus without complications; E78.00 Pure hypercholesterolemia, unspecified; Z79.84 Long term (current) use of oral hypoglycemic drugs; Z79.899 Other long term (current) drug therapy
CPT/HCPCS: 73020; 80048; 82962; 87081; 97110; 97165; 97535; C1713; C1776; J7040; J7120; J2405

== ENCOUNTER → 2019-03-09 15:32 | Outpatient (CLI) | payer SELFPAY ==
[2018-03-04 11:58] VITALS: BMI 34.5
[2019-03-09 18:09] LABS: ALB/GLOB Ratio 1.2 RATIO (0.9-2.4); AST(SGOT) 19 U/L (15-37); Alanine Aminotransfer ALT/SGPT 39 U/L (16-61); Albumin, Serum 4.1 g/dL (3.2-5.0); Alkaline Phosphatase 78 U/L (45-117); Anion Gap 8 (5-15); BUN 22 mg/dL (7-18); BUN/Creat Ratio 18.2 RATIO (10-20); Calcium,Total 8.9 mg/dL (8.5-10.1); Chloride 106 mmol/L (98-107); Cholesterol 192 mg/dL (200); Creatinine, Serum 1.21 mg/dL (0.70-1.30); EST Glomerular Filtration Rate 65 mL/min (>60); Est Glom Filt Rate - Afr Amer 79 mL/min (>60); Globulin 3.5 g/dL (2.2-4.2); Glucose 115 mg/dL (74-106); High Density Lipoprotein 26 mg/dL; PSA,Total - Annual Screen 0.52 ng/mL (0.00-4.00); Potassium 3.7 mmol/L (3.5-5.1); Protein, Total 7.6 g/dL (6.4-8.2); Sodium Level 137 mmol/L (136-145); Triglycerides 633 mg/dL
== END ==
PROVIDERS: Family Provider Family Medicine; PCP Family Medicine; Visit Provider Family Medicine
DX: E34.9 Endocrine disorder, unspecified (principal); E11.9 Type 2 diabetes mellitus without complications
CPT/HCPCS: 36415; 80053; 80061; 84153; 84403; G0103

== ENCOUNTER → 2019-11-05 16:28 | Outpatient (CLI) | payer SELFPAY ==
[2018-03-04 11:58] VITALS: BMI 34.5
[2019-11-05 18:03] LABS: ALB/GLOB Ratio 1.1 RATIO (0.9-2.4); AST(SGOT) 19 U/L (15-37); Alanine Aminotransfer ALT/SGPT 37 U/L (16-61); Alkaline Phosphatase 83 U/L (45-117); Anion Gap 8 (5-15); BUN 26 mg/dL (7-18); BUN/Creat Ratio 20.2 RATIO (10-20); Calcium,Total 9.1 mg/dL (8.5-10.1); Chloride 105 mmol/L (98-107); Cholesterol 215 mg/dL (200); Creatinine, Serum 1.29 mg/dL (0.70-1.30); EST Glomerular Filtration Rate 61 mL/min (>60); Est Glom Filt Rate - Afr Amer 73 mL/min (>60); Globulin 3.6 g/dL (2.2-4.2); Glucose 157 mg/dL (74-106); High Density Lipoprotein 33 mg/dL; Potassium 3.8 mmol/L (3.5-5.1); Protein, Total 7.6 g/dL (6.4-8.2); Sodium Level 136 mmol/L (136-145); Thyroid Stim Hormone (TSH) 0.12 uIU/mL (0.358-3.74); Triglycerides 426 mg/dL
== END ==
PROVIDERS: Family Provider Family Medicine; PCP Family Medicine; Referring Provider Family Medicine; Visit Provider Family Medicine
DX: E34.9 Endocrine disorder, unspecified (principal); E03.9 Hypothyroidism, unspecified; E78.5 Hyperlipidemia, unspecified; E11.9 Type 2 diabetes mellitus without complications
CPT/HCPCS: 36415; 80053; 80061; 84403; 84443

== ENCOUNTER → 2020-03-11 07:42 | Outpatient (CLI) | payer SELFPAY ==
[2018-03-04 11:58] VITALS: BMI 34.5
[2020-03-11 11:16] LABS: Thyroid Stim Hormone (TSH) 1.48 uIU/mL (0.358-3.74)
== END ==
PROVIDERS: PCP Family Medicine; Referring Provider Family Medicine; Visit Provider Family Medicine
DX: E03.9 Hypothyroidism, unspecified (principal)
CPT/HCPCS: 36415; 84443

== ENCOUNTER → 2020-05-31 16:49 | Outpatient (CLI) | payer SELFPAY ==
[2018-03-04 11:58] VITALS: BMI 34.5
--- NOTE | 2020-05-31 16:52 | RAD_ITS ---
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 COMPARISON: None EXAMINATION/TECHNIQUE: XR Chest 2 Views Number of images including paperwork: 3 FINDINGS: LUNGS AND PLEURA: No consolidation, mass or pleural effusion. Mild linear basilar opacities. CARDIAC SILHOUETTE: Unremarkable. MEDIASTINUM AND STEFF: Unremarkable. UPPER ABDOMEN: Unremarkable. SKELETON AND SOFT TISSUES: No acute findings. OTHER DEVICES AND HARDWARE: Right shoulder prosthesis partially visible. RAD/Chest PA and Lateral IMPRESSION: Mild linear basilar subsegmental atelectasis versus scarring CT could be performed for more sensitive evaluation if clinically warranted. at 2300 Reported and signed by: Rekha Cuevas MD Electronically Signed: Rekha Cuevas MD at 23:00 EDT Tel , Service support ,
== END ==
PROVIDERS: PCP Family Medicine; Referring Provider Family Medicine; Visit Provider Family Medicine
DX: R05 Cough (principal)
CPT/HCPCS: 71046

== ENCOUNTER → 2020-06-20 07:10 | Outpatient (CLI) | payer SELFPAY ==
[2020-06-20 10:33] LABS: Anion Gap 5 (5-15); BUN 21 mg/dL (7-18); BUN/Creat Ratio 17.4 RATIO (10-20); Calcium,Total 9.3 mg/dL (8.5-10.1); Chloride 105 mmol/L (98-107); Cholesterol 224 mg/dL (200); Creatinine, Serum 1.21 mg/dL (0.70-1.30); EST Glomerular Filtration Rate 65 mL/min (>60); Est Glom Filt Rate - Afr Amer 79 mL/min (>60); Glucose 254 mg/dL (74-106); High Density Lipoprotein 30 mg/dL; Potassium 4.2 mmol/L (3.5-5.1); Sodium Level 135 mmol/L (136-145); Triglycerides 427 mg/dL
== END ==
PROVIDERS: PCP Family Medicine; Referring Provider Family Medicine; Visit Provider Family Medicine
DX: E11.9 Type 2 diabetes mellitus without complications (principal)
CPT/HCPCS: 36415; 80048; 80061; 84403

== ENCOUNTER → 2020-12-05 13:57 | Outpatient (CLI) | payer SELFPAY ==
[2018-03-04 11:58] VITALS: BMI 34.5
[2020-12-05 15:41] LABS: ALB/GLOB Ratio 1.1 RATIO (0.9-2.4); AST(SGOT) 12 U/L (15-37); Alanine Aminotransfer ALT/SGPT 29 U/L (16-61); Albumin, Serum 4.2 g/dL (3.2-5.0); Alkaline Phosphatase 88 U/L (45-117); Anion Gap 10 (5-15); BUN 27 mg/dL (7-18); BUN/Creat Ratio 21.8 RATIO (10-20); Calcium,Total 9.9 mg/dL (8.5-10.1); Chloride 102 mmol/L (98-107); Cholesterol 234 mg/dL (200); Creatinine, Serum 1.24 mg/dL (0.70-1.30); EST Glomerular Filtration Rate 63 mL/min (>60); Est Glom Filt Rate - Afr Amer 76 mL/min (>60); Globulin 3.8 g/dL (2.2-4.2); Glucose 144 mg/dL (74-106); High Density Lipoprotein 38 mg/dL; PSA,Total - Annual Screen 0.65 ng/mL (0.00-4.00); Potassium 3.7 mmol/L (3.5-5.1); Sodium Level 136 mmol/L (136-145); Triglycerides 251 mg/dL; Very Low Density Lipoprotein 50 mg/dL (5-40)
== END ==
PROVIDERS: PCP Family Medicine; Visit Provider Family Medicine
DX: E34.9 Endocrine disorder, unspecified (principal); E78.5 Hyperlipidemia, unspecified; Z12.5 Encounter for screening for malignant neoplasm of prostate
CPT/HCPCS: 36415; 80053; 80061; 84153; 84403; G0103

== ENCOUNTER → 2021-09-13 08:18 | Outpatient (CLI) | payer SELFPAY ==
[2021-09-13 10:18] LABS: ALB/GLOB Ratio 0.9 RATIO (0.9-2.4); AST(SGOT) 12 U/L (15-37); Alanine Aminotransfer ALT/SGPT 21 U/L (16-61); Albumin, Serum 3.6 g/dL (3.2-5.0); Alkaline Phosphatase 86 U/L (45-117); Anion Gap 7 (5-15); BUN 16 mg/dL (7-18); BUN/Creat Ratio 12.9 RATIO (10-20); Calcium,Total 9.3 mg/dL (8.5-10.1); Chloride 102 mmol/L (98-107); Cholesterol 214 mg/dL (200); Creatinine, Serum 1.24 mg/dL (0.70-1.30); EST Glomerular Filtration Rate 63 mL/min (>60); Est Glom Filt Rate - Afr Amer 76 mL/min (>60); Globulin 3.8 g/dL (2.2-4.2); Glucose 193 mg/dL (74-106); High Density Lipoprotein 30 mg/dL; Protein, Total 7.4 g/dL (6.4-8.2); Sodium Level 135 mmol/L (136-145); Thyroid Stim Hormone (TSH) 3.01 uIU/mL (0.358-3.74); Triglycerides 272 mg/dL; Very Low Density Lipoprotein 54 mg/dL (5-40)
== END ==
PROVIDERS: PCP Family Medicine; Referring Provider Family Medicine; Visit Provider Family Medicine
DX: E03.9 Hypothyroidism, unspecified (principal); E11.9 Type 2 diabetes mellitus without complications; E34.9 Endocrine disorder, unspecified
CPT/HCPCS: 36415; 80053; 80061; 84403; 84443

== ENCOUNTER 2021-12-13 16:37 | Outpatient (CLI) | payer SELFPAY ==
[2021-12-13 18:59] LABS: T4 Free Direct 1.42 ng/dL (0.76-1.46); Thyroid Stim Hormone (TSH) 0.78 uIU/mL (0.358-3.74)
== END 2021-12-13 23:59 | disposition home or self-care (01) ==
LOC: MFPLAB 16:37
PROVIDERS: PCP Family Medicine; Referring Provider Family Medicine; Visit Provider Family Medicine
DX: E03.9 Hypothyroidism, unspecified (principal)
CPT/HCPCS: 36415; 84439; 84443

== ENCOUNTER → 2022-07-03 | Outpatient (CLI) | payer SELFPAY ==
[2022-07-03 12:17] LABS: Hematocrit 41.6 % (40-54); Hemoglobin 13.9 g/dL (13.0-16.5); Mean Corp Hgb Conc 33.4 g/dL (32-36); Mean Corpuscular Hgb 29.5 pg (27.0-32.0); Mean Corpuscular Volume 88.3 fL (80-94); Mean Platelet Vol. 10.7 fl (6.2-12.0); Platelet Count 395 K/mm3 (150-450); RBC Distribution Width CV 13.8 % (11.6-14.6); Red Blood Count 4.71 M/mm3 (4.6-6.2); White Blood Count 7.3 K/mm3 (4.4-11.0)
[2022-07-03 13:03] LABS: AST(SGOT) 12 U/L (15-37); Alanine Aminotransfer ALT/SGPT 21 U/L (16-61); Albumin, Serum 3.6 g/dL (3.2-5.0); Alkaline Phosphatase 77 U/L (45-117); Anion Gap 9 (5-15); BUN 20 mg/dL (7-18); BUN/Creat Ratio 16.8 RATIO (10-20); Calcium,Total 9.8 mg/dL (8.5-10.1); Chloride 104 mmol/L (98-107); Creatinine, Serum 1.19 mg/dL (0.70-1.30); EST Glomerular Filtration Rate 66 mL/min (>60); Est Glom Filt Rate - Afr Amer 80 mL/min (>60); Globulin 3.7 g/dL (2.2-4.2); Glucose 159 mg/dL (74-106); PSA,Total - Annual Screen 0.58 ng/mL (0.00-4.00); Potassium 4.2 mmol/L (3.5-5.1); Protein, Total 7.3 g/dL (6.4-8.2); Sodium Level 137 mmol/L (136-145)
== END | disposition home or self-care (01) ==
PROVIDERS: PCP Family Medicine; Visit Provider Family Medicine
DX: E34.9 Endocrine disorder, unspecified (principal)
CPT/HCPCS: 36415; 80053; 84153; 84403; 85027; G0103

== ENCOUNTER → 2023-06-06 | Outpatient (CLI) | payer SELFPAY ==
[2023-06-06 17:56] LABS: Absolute Lymphocyte Count 2.28 X10^3/uL (0.83-4.51); Absolute Neutrophil Count 6.9 X10^3/uL (2.0-7.7); Basophil# 0.05 X10^3/uL; Basophil% 0.5 % (0-1); Eosinophil# 0.04 X10^3/uL; Eosinophils% 0.4 % (0-5); Hematocrit 41.8 % (40-54); Lymphocyte # 2.28 X10^3/ul (0.83-4.51); Lymphocyte % 23.2 % (19-41); Mean Corp Hgb Conc 33.5 g/dL (32-36); Mean Corpuscular Hgb 29.2 pg (27.0-32.0); Mean Corpuscular Volume 87.1 fL (80-94); Mean Platelet Vol. 10.2 fl (6.2-12.0); Monocyte# 0.54 X10^3/uL; Monocyte% 5.5 % (0-10); NRBC Flagged by Analyzer 0 % (0-5); Neutrophil # 6.89 X10^3/uL (2.7-7.7); Neutrophil % 70.3 % (47-70); Platelet Count 339 K/mm3 (150-450); RBC Distribution Width CV 13.8 % (11.6-14.6); RBC Distribution Width SD 44.7 fl (35.1-43.9); White Blood Count 9.8 K/mm3 (4.4-11.0)
[2023-06-06 18:11] LABS: ALB/GLOB Ratio 1.2 RATIO (0.9-2.4); AST(SGOT) 12 U/L (15-37); Alanine Aminotransfer ALT/SGPT 24 U/L (16-61); Albumin, Serum 3.8 g/dL (3.2-5.0); Alkaline Phosphatase 65 U/L (45-117); Anion Gap 9 (5-15); BUN 16 mg/dL (7-18); BUN/Creat Ratio 13.7 RATIO (10-20); Calcium,Total 9.2 mg/dL (8.5-10.1); Chloride 103 mmol/L (98-107); Cholesterol 93 mg/dL (200); Creatinine, Serum 1.17 mg/dL (0.70-1.30); EST Glomerular Filtration Rate 67 mL/min (>60); Est Glom Filt Rate - Afr Amer 81 mL/min (>60); Globulin 3.2 g/dL (2.2-4.2); Glucose 104 mg/dL (74-106); High Density Lipoprotein 34 mg/dL; PSA,Total - Annual Screen 0.78 ng/mL (0.00-4.00); Potassium 3.6 mmol/L (3.5-5.1); Sodium Level 135 mmol/L (136-145); Thyroid Stim Hormone (TSH) 0.18 uIU/mL (0.358-3.74); Triglycerides 148 mg/dL; Very Low Density Lipoprotein 30 mg/dL (5-40)
== END | disposition home or self-care (01) ==
LOC: MTLAB 15:48
PROVIDERS: PCP Family Medicine; Visit Provider Family Medicine
DX: E03.9 Hypothyroidism, unspecified (principal); E11.9 Type 2 diabetes mellitus without complications
CPT/HCPCS: 36415; 80053; 80061; 84153; 84403; 84443; 85025; G0103

== ENCOUNTER → 2024-02-13 | Outpatient (CLI) | payer SELFPAY ==
[2024-02-13 18:09] LABS: Hematocrit 41.3 % (40-54); Hemoglobin 13.8 g/dL (13.0-16.5); Mean Corp Hgb Conc 33.4 g/dL (32-36); Mean Corpuscular Hgb 29.1 pg (27.0-32.0); Mean Corpuscular Volume 87.1 fL (80-94); Mean Platelet Vol. 10.2 fl (6.2-12.0); Platelet Count 342 K/mm3 (150-450); RBC Distribution Width CV 14.4 % (11.6-14.6); RBC Distribution Width SD 45.8 fl (35.1-43.9); Red Blood Count 4.74 M/mm3 (4.6-6.2); White Blood Count 8.3 K/mm3 (4.4-11.0)
[2024-02-13 18:27] LABS: Vitamin B12 448 pg/mL (211-911); Vitamin D,25 Hydroxy 56.2 ng/mL
[2024-02-13 18:47] LABS: ALB/GLOB Ratio 1.4 RATIO (0.9-2.4); AST(SGOT) 15 U/L (15-37); Alanine Aminotransfer ALT/SGPT 23 U/L (16-61); Albumin, Serum 4.2 g/dL (3.2-5.0); Alkaline Phosphatase 58 U/L (45-117); Anion Gap 8 (5-15); BUN 16 mg/dL (7-18); BUN/Creat Ratio 11.7 RATIO (10-20); Chloride 108 mmol/L (98-107); Cholesterol 107 mg/dL (200); Creatinine, Serum 1.37 mg/dL (0.70-1.30); EST Glomerular Filtration Rate 56 mL/min (>60); Est Glom Filt Rate - Afr Amer 67 mL/min (>60); Glucose 124 mg/dL (74-106); High Density Lipoprotein 35 mg/dL; Iron 71 ug/dL (65-175); Potassium 3.7 mmol/L (3.5-5.1); Protein, Total 7.2 g/dL (6.4-8.2); Sodium Level 137 mmol/L (136-145); Thyroid Stim Hormone (TSH) 1.96 uIU/mL (0.358-3.74); Triglycerides 150 mg/dL; Very Low Density Lipoprotein 30 mg/dL (5-40)
== END | disposition home or self-care (01) ==
LOC: MFPLAB 15:43
PROVIDERS: PCP Family Medicine; Visit Provider Family Medicine
DX: R53.83 Other fatigue (principal); E11.9 Type 2 diabetes mellitus without complications
CPT/HCPCS: 36415; 80053; 80061; 82306; 82607; 83540; 84403; 84443; 85027

== ENCOUNTER → 2024-09-22 | Outpatient (CLI) | payer MEDICAID, SELFPAY ==
[2024-09-22 12:32] LABS: Hematocrit 46.3 % (40-54); Hemoglobin 14.7 g/dL (13.0-16.5); Mean Corp Hgb Conc 31.7 g/dL (32-36); Mean Corpuscular Hgb 28.4 pg (27.0-32.0); Mean Corpuscular Volume 89.6 fL (80-94); Mean Platelet Vol. 10.5 fl (6.2-12.0); Platelet Count 309 K/mm3 (150-450); RBC Distribution Width CV 14.2 % (11.6-14.6); RBC Distribution Width SD 46.4 fl (35.1-43.9); Red Blood Count 5.17 M/mm3 (4.6-6.2); White Blood Count 10.6 K/mm3 (4.4-11.0)
[2024-09-22 12:53] LABS: ALB/GLOB Ratio 1.1 RATIO (0.9-2.4); AST(SGOT) 10 U/L (15-37); Alanine Aminotransfer ALT/SGPT 20 U/L (16-61); Albumin, Serum 3.7 g/dL (3.2-5.0); Alkaline Phosphatase 74 U/L (45-117); Anion Gap 4 (5-15); BUN 13 mg/dL (7-18); BUN/Creat Ratio 11.6 RATIO (10-20); Calcium,Total 9.2 mg/dL (8.5-10.1); Chloride 108 mmol/L (98-107); Creatinine, Serum 1.12 mg/dL (0.70-1.30); EST Glomerular Filtration Rate 70 mL/min (>60); Est Glom Filt Rate - Afr Amer 85 mL/min (>60); Globulin 3.5 g/dL (2.2-4.2); Glucose 127 mg/dL (74-106); Potassium 4.2 mmol/L (3.5-5.1); Protein, Total 7.2 g/dL (6.4-8.2); Sodium Level 139 mmol/L (136-145)
== END | disposition home or self-care (01) ==
LOC: MFPLAB 10:06
PROVIDERS: PCP Family Medicine; Visit Provider Family Medicine
DX: E11.9 Type 2 diabetes mellitus without complications (principal)
CPT/HCPCS: 36415; 80053; 84403; 84443; 85027

== ENCOUNTER → 2025-05-13 | Outpatient (CLI) | payer MEDICAID, SELFPAY ==
[2025-05-13 16:40] LABS: AST(SGOT) 19 U/L (<=37); Alanine Aminotransfer ALT/SGPT 17 U/L (<=46); Albumin, Serum 4.4 g/dL (3.4-4.8); Alkaline Phosphatase 68 U/L (40-129); Anion Gap 14 (5-15); BUN 27 mg/dL (4-19); BUN/Creat Ratio 22.3 RATIO (10-20); Calcium,Total 9.7 mg/dL (7.6-11.0); Carbon Dioxide 20.1 mmol/L (21.0-32.0); Chloride 99 mmol/L (98-108); Globulin 2.4 g/dL (2.2-4.2); Glucose 90 mg/dL (70-99); Potassium 4.0 mmol/L (3.3-5.1)
== END | disposition home or self-care (01) ==
LOC: MFPLAB 14:02
PROVIDERS: PCP Family Medicine; Referring Provider Family Medicine; Visit Provider Family Medicine
DX: E11.9 Type 2 diabetes mellitus without complications (principal)
CPT/HCPCS: 36415; 80053

== ENCOUNTER → 2025-08-11 | Outpatient (CLI) | payer MEDICAID, SELFPAY ==
[2025-08-11 18:13] LABS: Hematocrit 45.1 % (40-54); Hemoglobin 15.3 g/dL (13.0-16.5); Mean Corp Hgb Conc 33.9 g/dL (32-36); Mean Corpuscular Volume 86.6 fL (80-94); Mean Platelet Vol. 10.5 fl (6.2-12.0); Platelet Count 359 K/mm3 (150-450); RBC Distribution Width CV 13.8 % (11.6-14.6); RBC Distribution Width SD 43.5 fl (35.1-43.9); Red Blood Count 5.21 M/mm3 (4.6-6.2); White Blood Count 13.0 K/mm3 (4.4-11.0)
[2025-08-11 18:39] LABS: Cholesterol 107 mg/dL (<=200); Low Density Lipoprotein Calc. 48 mg/dL; PSA,Total - Annual Screen 1.13 ng/mL (0.02-4.00); Triglycerides 134 mg/dL; Very Low Density Lipoprotein 27 mg/dL (5-40); cholesterol:hdl ratio screen 3.28
== END | disposition home or self-care (01) ==
LOC: MFPLAB 14:03
PROVIDERS: PCP Family Medicine; Visit Provider Family Medicine
DX: E11.9 Type 2 diabetes mellitus without complications (principal); Z12.5 Encounter for screening for malignant neoplasm of prostate
CPT/HCPCS: 84153; 36415; 80061; 84403; 85027; G0103